=== PATIENT | male | born 1980 | race Hispanic/Latino ===

== ENCOUNTER 2018-06-18 14:47 | Emergency (ER) | payer BC ==
[2018-06-18 14:56] VITALS: RESP 18
--- NOTE | 2018-06-18 15:02 | C.PDOC ---
History Of Present Illness 37-year-old male presents to the ED for evaluation after he sustained an injury to his left third finger prior to arrival. 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 Patient sustained a burst injury to the thumb and is now complaining of 10 out of 10 pain. Patient states that the nail has fallen off of his finger. He does not live in this area, but presents to this ED because he was afraid he might not be able to drive back to his area for evaluation. Patient denies fever, chills, or any other complaints at this time. Time Seen by Provider: 06/18/18 14:58 Chief Complaint (Nursing): Abnormal Skin Integrity History Per: Patient History/Exam Limitations: no limitations Onset/Duration Of Symptoms: Hrs Current Symptoms Are (Timing): Still Present Location Of Injury: Left: Hand (third finger) Quality Of Symptoms: Painful Pain Scale Rating Of: 10 Additional History Per: Patient Past Medical History Reviewed: Historical Data, Nursing Documentation, Vital Signs Vital Signs: Last Vital Signs Temp 97.4 F L 06/18/18 14:53 Pulse 99 H 06/18/18 14:53 Resp 18 06/18/18 14:53 BP 143/84 06/18/18 14:53 Pulse Ox 100 06/18/18 14:53 Family History: States: No Known Family Hx - Social History Hx Alcohol Use: Yes Hx Substance Use: No - Immunization History Hx Tetanus Toxoid Vaccination: Yes ("6 YEARS AGO") Hx Influenza Vaccination: No Hx Pneumococcal Vaccination: No Review Of Systems Musculoskeletal: Positive for: Other (burst injury to lefgt 3rd digit ) Physical Exam - Physical Exam Appears: Non-toxic, No Acute Distress Skin: Normal Color, Warm, Dry Head: Atraumatic, Normacephalic Eye(s): bilateral: Normal Inspection Extremity: Capillary Refill (less than 2 seconds ), Other (Partial avulsion of distal aspect of left 3rd finger, through nail bed. No nail present. Jagged laceration around digit. large amount of macerated tissue with bleeding ) Pulses: Left Radial: Normal, Right Radial: Normal Neurological/Psych: Oriented x3, Normal Speech, Normal Cognition, Normal Sensation ED Course And Treatment O2 Sat by Pulse Oximetry: 100 (on RA) Pulse Ox Interpretation: Normal Medical Decision Making Medical Decision Making: Tetanus immunization, Ancef IVPB, and morphine IVP given. The area was cleaned, soaked, and washed thoroughly with soap. Digital block was Obtained with 6ml of lidocaine 2%. Area was draped and prepped and sterile fashion. Multiple sutures were placed using 40 nylon. Three sutures placed to nailbed, and eight sutures circulating around the finger. Steri-Strips and cling applied. On reassessment, patient is resting comfortably, showing no signs of distress, and is stable for discharge. Patient is advised to follow up with hand surgeon in two days for further evaluation. Disposition Counseled Patient/Family Regarding: Diagnosis, Need For Followup, Rx Given - Disposition Disposition: HOME/ ROUTINE Disposition Time: 17:02 Condition: STABLE Additional Instructions: Keep your left hand clean and dry for 2 days. Follow up with a hand surgeon in your area within 2 days. Follow up in your nearest Emergency Department if fever, pain, bleeding occurs. Prescriptions: Cephalexin [Keflex] 500 mg PO TID #40 capsule Ibuprofen [Motrin] 600 mg PO TID #15 tab Instructions: Wound Care (DC), Laceration Repair With Stitches (DC) Forms: Gen Discharge Inst Surinamese, [facility]uum (Surinamese), Work Excuse - POA Present On Arrival: None - Clinical Impression Clinical Impression: Laceration - Scribe Statement The provider has reviewed the documentation as recorded by the Scribe (Luiza Dong) Provider Attestation: All medical record entries made by the Scribe were at my direction and personally dictated by me. I have reviewed the chart and agree that the record accurately reflects my personal performance of the history, physical exam, medical decision making, and the department course for this patient. I have also personally directed, reviewed, and agree with the discharge instructions and disposition.
[2018-06-18] MEDS ORDERED: Tdap Vaccine 0.5 ml Vial (10-64 yrs) IM ONE ×2 (15:25→15:40)
[2018-06-18] MEDS ORDERED: Lidocaine 2% Inj (20ml) INFIL ONE (15:26)
[2018-06-18] MEDS ORDERED: Lidocaine 2% MPF (5 ml) Inj ONE (15:40)
[2018-06-18] MEDS ORDERED: Morphine 4 MG/ML VIAL ONE (15:49)
[2018-06-18] MEDS ORDERED: ceFAZolin 1 gm in NS 1 GM/100 ML BAG IVPB ONE (15:49)
[2018-06-18 17:23] VITALS: BP 120/75; PULSE 84; TEMP 98.2
[2018-06-18 23:34] VITALS: O2SAT 100
== END 2018-06-18 17:26 | disposition home or self-care (01) ==
LOC: C.ER 14:47
DX: S61.313A Laceration without foreign body of left middle finger with damage to nail, initial encounter (principal); W22.8XXA Striking against or struck by other objects, initial encounter; Y92.89 Other specified places as the place of occurrence of the external cause; Y99.0 Civilian activity done for income or pay
CPT/HCPCS: 12002; 90471; 90715; 96365; 96375; 99284; J0690; J2270